=== PATIENT | female | born 1980 | race Asian ===

== ENCOUNTER 2019-03-12 13:26 | Inpatient (IN) | payer BC ==
[~2019-03-12] VITALS: Ht 154.9 cm; Wt 82.6 kg
[2019-03-12 14:06] LABS: BILIRUBIN,URINE NEGATIVE (NEG); CLARITY,URINE CLEAR; COLOR,URINE YELLOW; NITRITE,URINE NEGATIVE (NEG); PROTEIN,URINE NEGATIVE (NEG-TRACE); UROBILINOGEN,URINE 0.2 mg/dL (0.2 mg/dL)
[2019-03-12 14:34] LABS: BACTERIA,URINE FEW /HPF (0-FEW); RBC,URINE OCC /HPF (0-2); SQUAMOUS EPITHELIAL CELL,UR MOD /LPF; WBC,URINE 0 /HPF (0-4)
[2019-03-12] MEDS ORDERED: ONDANSETRON PF 4 MG/2 ML VIAL. IV PRN (17:15)
[2019-03-12] MEDS ORDERED: OXYTOCIN 30 UNIT/500 ML PREMIX 500 ML IV PRN ×3 (17:15→21:30)
[2019-03-12] MEDS ORDERED: fentaNYL PF VIAL 100 MCG/2 ML VIAL IV PRN ×2 (17:15)
[2019-03-12] MEDS ORDERED: LIDOCAINE 1% PF 30 ML VIAL. INJ PRN (17:15)
[2019-03-12] MEDS ORDERED: TERBUTALINE 1 MG/ML VIAL. SQ PRN (17:15)
[2019-03-12] MEDS ORDERED: IBUPROFEN 400 MG TABLET. PO PRN (17:15)
[2019-03-12] MEDS ORDERED: 0.9 % SODIUM CHLORIDE 10 ML DISP.SYRIN. IV PRN ×2 (17:15→21:15)
[2019-03-12 17:24] LABS: BASO # 0.1 x10^3/uL (0.0-0.2); BASO % 1 % (0-3); EOS # 0.1 x10^3/uL (0.0-0.7); EOS % 1 % (0-3); HEMATOCRIT 40.4 % (36.0-47.0); HEMOGLOBIN 13.9 g/dL (12.0-15.5); LYMPH # 2.6 x10^3/uL (1.0-4.8); LYMPH % 29 % (24-48); MEAN CORPUSCULAR HEMOGLOBIN 31 pg (25-35); MEAN CORPUSCULAR HGB CONC 35 g/dL (31-37); MEAN CORPUSCULAR VOLUME 90 fL (79-100); MONO # 0.6 x10^3/uL (0.0-1.1); MONO % 6 % (0-9); NEUT # 5.6 x10^3/uL (1.8-7.7); NEUT % 63 % (31-73); PLATELET COUNT 208 x10^3/uL (140-400); RED BLOOD COUNT 4.48 x10^6/uL (3.50-5.40); RED CELL DISTRIBUTION WIDTH 13.1 % (11.5-14.5); WHITE BLOOD COUNT 8.9 x10^3/uL (4.0-11.0)
[2019-03-12] MEDS: IV RINGERS,LACTATED 1000ML 1,000 ML IV SCH ×2 (17:45→18:03)
[2019-03-12 18:06] VITALS: BP 112/73
[2019-03-12] MEDS ORDERED: IV RINGERS,LACTATED 1000ML 1,000 ML IV SCH (18:38)
[2019-03-12] MEDS ORDERED: ROPIVacaine 0.2% PF 10 ML VIAL. ONE (18:41)
[2019-03-12] MEDS ORDERED: ROPIVacaine 0.2% IN 0.9%NACL PF 40 MG/20 ML DISP.SYRIN. ONE (18:41)
[2019-03-12] MEDS ORDERED: fentaNYL PF VIAL 100 MCG/2 ML VIAL EPI PRN (18:45)
[2019-03-12] MEDS ORDERED: L&D EPIDURAL SYRINGE 50 ML EPID PRN (18:45)
[2019-03-12] MEDS ORDERED: ROPIVacaine 0.2% IN 0.9%NACL PF 40 MG/20 ML DISP.SYRIN. EPID PRN (18:45)
[2019-03-12] MEDS ORDERED: NALOXONE 0.4 MG/ML VIAL. IV PRN (18:45)
[2019-03-12] MEDS ORDERED: miSOPROStol 200 MCG TABLET ONE (20:02)
--- NOTE | 2019-03-12 21:13 | PDOC1 ---
OB - History Hx of Present Care: Good Care Ultrasounds: Normal mid trimester US Obstetrical Complications: None Medical Complications: None Past Family/Social History * Past Medical, Surgical, Family and Obstetric Histories reviewed from chart. Blood Type: O+ Rubella: Immune RPR/VDRL: Negative GBS Status: Negative HBsAG: Negative OB - Chief Complaint & HPI Date of Admission: Date of Admission: Mar 12, 2019 at 13:26 Chief Complaint/History : 8 Para: 7 EDC: Mar 16, 2019 Reason for admission: active labor Admission Nurse Assessment Rev: Yes OB - Admission Exam Physical Exam Vitals: VS - Last 72 Hours, by Label Date Time Temp Pulse Resp B/P (MAP) Pulse Ox O2 Delivery O2 Flow Rate FiO2 03/12/19 18:55 20 Room Air 03/12/19 18:06 97.9 72 20 112/73 (86) 97.9 HEENT: Normal, Nasal Mucosa Normal, Oropharynx Normal, Moist Membranes, Fontanelles Normal Heart: Regular Rate Lungs: Clear, Equal Abdomen: Gravid Extremities: Normal Pulses, No tenderness or swelling Reflexes: Normal Cervical Dilatation: 3cm Effacement: 50% Station: Ballotable Membranes: Intact Amniotic Fluid: Clear Heart Rate: Normal Accelerations: Accelerations Present Decelerations: No decelerations Contractions on Admission: 6-10 Minutes Apart Intensity: Moderate Assessment/Plan Assessment/Plan TIUP ACS JUJU SWANSON MD Mar 12, 2019 21:12
[2019-03-12] MEDS ORDERED: MAGNESIUM HYDROXIDE 2,400 MG/30 ML ORAL.SUSP. PO PRN (21:15)
[2019-03-12] MEDS ORDERED: ZOLPIDEM 5 MG TABLET. PO PRN (21:15)
[2019-03-12] MEDS ORDERED: SIMETHICONE 80 MG TAB.CHEW PO PRN (21:15)
[2019-03-12] MEDS ORDERED: BENZOCAINE 20% TOPICAL AEROSOL SPRAY 57GM CAN. TP PRN (21:15)
[2019-03-12] MEDS ORDERED: ACETAMINOPHEN 325 MG TABLET. PO PRN (21:15)
[2019-03-12] MEDS ORDERED: MAG HYDROX/ALUMINUM HYD/SIMETH 30 ML ORAL.SUSP PO PRN (21:15)
[2019-03-12] MEDS ORDERED: PHENYLEPH/MINERAL OIL/PETROLAT RECTAL OINTMENT 57GM TUBE. RC PRN (21:15)
[2019-03-12] MEDS ORDERED: diphenhydrAMINE HCL 25 MG CAPSULE PO PRN (21:15)
[2019-03-12] MEDS ORDERED: HYDROCORTISONE 1% TOPICAL OINTMENT 30GM TUBE. TP PRN (21:15)
--- NOTE | 2019-03-12 21:30 | PDOC ---
VAGINAL DELIVERY DATE DATE: 03/12/19 TIME: 21:21 : Other (8) EDC: Mar 16, 2019 VAGINAL DELIVERY: VTX VACCUM ASSISTED: No PLACENTA: Spontaneous SEX: Male WEIGHT Weight [ ] Nuchal Cord: Yes, Times 1, Loose Amniotic Fluid: Clear PAIN: Epidural EPISIOTOMY: No EXTENSION: Yes EBL 300cc COMPLICATIONS None CONDITION Stable Signs of Intrauterine Infectio: None Shoulder Dystocia: No DIAGNOSIS JUJU Jacobs MD Mar 12, 2019 21:30
[2019-03-13] MEDS: IBUPROFEN 400 MG TABLET. PO SCH (00:14)
[2019-03-13 00:15] VITALS: BP_SYST 112; BP_SYST 98; BP_DIAS 63; BP_DIAS 67
[2019-03-13] MEDS ORDERED: FERROUS SULFATE 325 MG TABLET. PO SCH (08:00)
[2019-03-13] MEDS: IBUPROFEN 400 MG TABLET. PO PRN ×2 (11:10→19:17)
[2019-03-13 11:20] VITALS: BP 101/65
--- NOTE | 2019-03-13 12:24 | PDOC ---
Provider Note Provider Note Doing well VSS Uterus NTTP FU in AM Vital Sign - Last 24 Hours 03/12/19 03/12/19 03/13/19 03/13/19 18:06 18:55 00:15 00:15 Temp 97.9 98.6 98.4 97.9 98.6 98.4 Pulse 72 68 86 Resp 20 20 18 18 B/P (MAP) 112/73 (86) 112/67 (82) 98/63 (75) Pulse Ox 98 98 O2 Delivery Room Air Room Air Room Air Intake and Output 03/12/19 03/12/19 03/13/19 14:59 22:59 06:59 Intake Total 60 ml Balance 60 ml CBC - BMP 03/12/19 17:08 03/13/19 03:10 JUJU SWANSON MD Mar 13, 2019 12:24
[2019-03-13 19:30] VITALS: BP 109/76
[2019-03-14] MEDS: IBUPROFEN 400 MG TABLET. PO SCH (04:06)
[2019-03-14 04:17] VITALS: BP 123/84
[2019-03-14 11:00] VITALS: BP 107/68
[2019-03-14] MEDS: IBUPROFEN 400 MG TABLET. PO PRN (11:23)
--- NOTE | 2019-03-14 11:23 | PDOC ---
GENERAL General: Mom doing ok. No fever. VITAL SIGNS Vital Signs/I&O: Vital Signs Date Time Temp Pulse Resp B/P (MAP) Pulse Ox O2 Delivery O2 Flow Rate FiO2 03/14/19 04:17 98.2 73 20 123/84 (97) Room Air 98.2 03/13/19 19:30 98 ALLERGIES Allergies: Allergies Coded Allergies Type Severity Reaction Last Updated Verified No Known Drug Allergies 03/12/19 No ASSESSMENT & PLAN A&P Patient likes to go Home today. She is to call [facility] office on Sunday to make Appt in one week. SAMIR GREENE MD Mar 14, 2019 11:23
--- NOTE | 2019-03-14 15:36 | NUR ---
Discharge Discharge instructions given to patient at this time. No questions at this time, to follow up with Dr Yates in 1 week. Ambulated off unit with all her belongings, family and baby secure in car seat are with her.
== END 2019-03-14 15:41 | disposition home or self-care (01) | DRG 807 ==
LOC: 3 SO LND 13:26 → OBSVTOIN 17:18 → 3 NORTH 03-13 00:15
PROVIDERS: ADMIT Specialist; ATTEND Specialist
PROC: 10E0XZZ Delivery of Products of Conception, External Approach (ICD-10-PCS; principal; 2019-03-12)
PROC: 3E0R3BZ Introduction of Anesthetic Agent into Spinal Canal, Percutaneous Approach (ICD-10-PCS; 2019-03-12)
PROC: 00HU33Z Insertion of Infusion Device into Spinal Canal, Percutaneous Approach (ICD-10-PCS; 2019-03-12)
DX: O69.81X0 Labor and delivery complicated by cord around neck, without compression, not applicable or unspecified (principal); Z37.0 Single live birth; Z3A.39 39 weeks gestation of pregnancy
CPT/HCPCS: 36415; 81001; 85014; 85025; 86592; 86850; 86870; 86900; 86901; G0378; G0379; J2590; J2795; J7120